=== PATIENT | male | born 1985 | race Caucasian/White ===

== ENCOUNTER 2016-08-09 12:44 | Emergency (ER) | payer OTHER ==
[2016-08-09 12:49] VITALS: BP 135/89; PULSE 90; RESP 18; TEMP 99; O2SAT 97; BMI 28.8
[2016-08-09] MEDS ORDERED: Oxycodone/Acetaminophen 5/325 mg Tab PO STA (13:30)
--- NOTE | 2016-08-09 13:33 | ED PDOC ---
Arrival/HPI - General Chief Complaint: Dental Pain Time Seen by Provider: 08/09/16 13:14 Historian: Patient - History of Present Illness Narrative History of Present Illness (Text): 08/09/16 14:38 Patient presents to the emergency room complaining of a 10 day history of right- sided dental pain, denies taking any medications for his symptoms. States that he has not seen a dentist yet. Denies any fevers, chills, headache, ear pain, sore throat, cough. Has no other complaints otherwise. Past Medical History - Provider Review Nursing Documentation Reviewed: Yes - Infectious Disease Hx of Infectious Diseases: None - Tetanus Immunization Tetanus Immunization: Unknown - Psychiatric Hx Depression: No Hx Emotional Abuse: No Hx Physical Abuse: No Hx Substance Use: No - Suicidal Assessment Feels Threatened In Home Enviroment: No Family/Social History - Physician Review Nursing Documentation Reviewed: Yes Family/Social History: No Known Family HX Smoking Status: Heavy Smoker > 10 Cigarettes Daily Hx Alcohol Use: No Hx Substance Use: No Allergies/Home Meds Allergies/Adverse Reactions: Allergies No Known Allergies Allergy (Verified 08/09/16 12:49) Review of Systems - Review of Systems Constitutional: Normal. absent: Fatigue, Weight Change, Fevers ENT: Normal, Other (Toothache). absent: Hearing Changes, Tinnitus, TMJ Pain, Voice Changes, Sore Throat, Rhinorrhea, Epistaxis, Sinus Congestion Respiratory: Normal. absent: SOB, Cough, Sputum Cardiovascular: Normal. absent: Chest Pain, Palpitations, Edema Skin: Normal. absent: Rash, Pruritis, Skin Lesions Physical Exam - Physical Exam Narrative Physical Exam (Text): 08/09/16 14:39 GENERAL APPEARANCE: Patient is awake, alert, oriented x 3, in moderate painful distress. SKIN: Warm, dry; (-) cyanosis. ENMT: (-) sinus swelling or tenderness. (+) tooth tenderness to percussion of the R bottom 3rd molar with gingival swelling. (-) fluctuance. Pharynx: (-) tongue elevation, (-) exudate. Airway patent: (-) stridor. (-) Submandibular or submental neck swelling (-) pseudomembranes NECK: (-) tenderness, (-) crepitus. Vital Signs Temp Pulse Resp BP Pulse Ox 08/09/16 12:45 99 F 90 18 135/89 97 Medical Decision Making ED Course and Treatment: 08/09/16 13:30 31 yo M presents with 10 day h/o toothache to the R bottom 3rd molar. Given percocet po and pcn po. Based on history and exam, plan will be for outpatient follow-up with a dentist. RX patient provided. Patient states he fully agrees with and understands discharge instructions. States that he agrees with the plan and disposition. Verbalized and repeated discharge instructions and plan. I have given the patient opportunity to ask any additional questions. Follow up with dentist in 1-2 days without fail. Advised to take medication as prescribed. Return to the emergency room at any time for any new or worsening symptoms. - Medication Orders Current Medication Orders: Discontinued Medications Oxycodone/Acetaminophen (Percocet 5/325 Mg Tab) 1 tab PO STAT STA Stop: 08/09/16 13:31 Last Admin: 08/09/16 13:36 Dose: 1 tab Penicillin V Potassium (Penicillin Vk Tab) 500 mg PO STAT STA PRN Reason: Protocol Stop: 08/09/16 13:31 Last Admin: 08/09/16 13:37 Dose: 500 mg - PA / [employer] / Resident Statement / has reviewed & agrees with the documentation as recorded. Disposition/Present on Arrival - Present on Arrival Any Indicators Present on Arrival: No History of DVT/PE: No History of Uncontrolled Diabetes: No Urinary Catheter: No History of Decub. Ulcer: No History Surgical Site Infection Following: None - Disposition Have Diagnosis and Disposition been Completed?: Yes Diagnosis: Toothache Disposition: HOME/ ROUTINE Disposition Time: 13:33 Patient Plan: Discharge Condition: GOOD Discharge Instructions (ExitCare): Toothache (ED) Print Language: GABONESE Additional Instructions: Thank you for letting us take care of you today. You were treated for toothache. The emergency medical care you received today was directed at your acute symptoms. If you were prescribed any medication, please fill it and take as directed. It may take several days for your symptoms to resolve. Return to the Emergency Department if your symptoms worsen, do not improve, or if you have any other problems. Please contact the dentist in 2 days for re-evaluation and follow up. Bring any paperwork you were given at discharge with you along with any medications you are taking to your follow up visit. Our treatment cannot replace ongoing medical care by a primary care provider (PCP) outside of the emergency department. Thank you for allowing the [facility] team to be part of your care today. Prescriptions: Acetaminophen with Codeine [Tylenol with Codeine #3 Tablet] 1 each PO TID PRN # 10 tablet PRN Reason: Pain, Moderate (4-7) Penicillin VK [Pen-Vee K] 500 mg PO QID #40 tab Referrals: [facility] [Outside] - Follow up with primary [facility] [Outside] - Follow up with primary
== END 2016-08-09 13:51 | disposition home or self-care (01) ==
LOC: ED 12:44
DX: K08.89 Other specified disorders of teeth and supporting structures (principal); F17.210 Nicotine dependence, cigarettes, uncomplicated